=== PATIENT | male | born 1935 | race African-American/Black ===

== ENCOUNTER → 2016-10-17 | Day surgery (SDC) | payer MEDICARE, MEDICAID ==
[2016-10-17] VITALS (10 sets, daily range): BP systolic 114–140; BP diastolic 61–82
[~2016-10-17] VITALS: Ht 167.6 cm; Wt 86.2 kg
[~2016-10-17] MED LIST: ACTOS15 MG ORAL; ALLOPURINOL100 M1 ORAL; Akten 3.5% 1ml Btl RIGHT EYE ONE; BSS 15ml BTL ONE; BSS 500ml btl ONE; Dexamethasone 4mg/ml vial ONE; EPINEPHrine 1mg/1ml Amp ONE; FUROSEMIDE10 MG/1 M2 PO; GLYBURIDE1.25 MG PO; IRON159 MG PO; LR 1000ml ONE; Lidocaine 1% MPF 10mg/ml 5ml ONE; MULTIVITAMINS1 EAC2 ORAL; Maxitrol Opth Oint 3.5gm ONE; NS Irrig 1000ml ONE; Povidone-Iodine 5% opth solution ONE; Pred Forte 1% Opth Susp 1ml ONE; Propofol 10mg/ml 20ml IV ONE; Sodium Hyaluronate 14 mg/ml 0.85ml ONE; Sterile Water Irrig 1000ml IRRIG ONE; Tobramycin Op Soln 0.3% RIGHT EYE ONE; VITAMIN D1000 UNI1 ORAL; fentaNYL 100 mcg/2 mL IV PRN
[2016-10-17] MEDS: Tropicamide 1% Opth Soln RIGHT EYE SCH ×3 (07:13→07:39)
[2016-10-17] MEDS: Cyclopentolate 1% Opth Sol RIGHT EYE SCH ×3 (07:13→07:39)
[2016-10-17] MEDS: Diclofenac Sod 0.1% Op Soln RIGHT EYE SCH ×3 (07:13→07:39)
[2016-10-17] MEDS: Phenylephrine 10% Opth Soln 5ml RIGHT EYE SCH ×3 (07:13→07:39)
[2016-10-17 07:45] LABS: ANION GAP 14 (5-15); CALCIUM 9.3 mg/dL (8.6-10.2); CARBON DIOXIDE 23 mEQ/L (20-30); CHLORIDE 100 mEQ/L (98-107); CREATININE 3.4 mg/dL (0.7-1.2); HEMOLYSIS 10; POTASSIUM 4.3 mEQ/L (3.4-4.9); SODIUM 137 mEQ/L (135-145)
[2016-10-17 07:50] LABS: MEAN CORPUSCULAR HEMOGLOBIN 34.9 PG (27.0-31.0); MEAN CORPUSCULAR HGB CONC 31.1 G/DL (32.0-36.0); MEAN CORPUSCULAR VOLUME 112 FL (80-99); MEAN PLATELET VOLUME 6.8 FL (6.5-10.1); PLATELET COUNT 83 K/UL (150-450); RED BLOOD COUNT 2.97 M/UL (4.70-6.10); RED CELL DISTRIBUTION WIDTH 15.3 % (11.6-14.8); WHITE BLOOD COUNT 3.7 K/UL (4.8-10.8)
--- NOTE | 2016-10-17 08:35 | Anethesia Preoperative Eval ---
Anesthesia Pre-op PMH/ROS General Date of Evaluation: Oct 17, 2016 Time of Evaluation: 08:20 Anesthesiologist: Jl ASA Score: ASA 3 Mallampati Score Class I : Soft palate, uvula, fauces, pillars visible Class II: Soft palate, uvula, fauces visible Class III: Soft palate, base of uvula visible Class IV: Only hard plate visible Mallampati Classification: Class II Surgeon: Talisha Diagnosis: cataract OD Surgical Procedure: cataract ext. w IOL OD Anesthesia History: other - no complic Social History: smoking - quit several years ago Family History: no anesthesia problems Allergies: Coded Allergies: No Known Allergies (Unverified , 10/15/16) Medications: see eMAR Past Medical History Cardiovascular: Reports: HTN Pulmonary: Reports: COPD Gastrointestinal/Genitourinary: Reports: CRI, other - cirrhosis of the liver Neurologic/Psychiatric: Reports: other - ZUNI Endocrine: Reports: DM - type 2 HEENT: Reports: ZUNI (L), cataract (R) Hematology/Immune: Reports: anemia, other - thrombocytopenia Anesthesia Pre-op Phys. Exam Physician Exam Last Vital Signs Date Time Temp Pulse Resp B/P Pulse Ox O2 Delivery O2 Flow Rate FiO2 10/17/16 07:42 97.4 60 18 128/61 99 Room Air Constitutional: NAD Neurologic: CN 2-12 intact Cardiovascular: RRR Respiratory: CTA Gastrointestinal: other - deferred Airway Exam Mallampati Score: Class II MO: limited Teeth: missing - upper incisors Dentures: upper - partial dent out Anesthesia Pre-op A/P Labs Hematology Test 10/17/16 06:55 White Blood Count 3.7 K/UL (4.8-10.8) L Red Blood Count 2.97 M/UL (4.70-6.10) L Hemoglobin 10.4 G/DL (14.2-18.0) L Hematocrit 33.3 % (42.0-52.0) L Mean Corpuscular Volume 112 FL (80-99) H Mean Corpuscular Hemoglobin 34.9 PG (27.0-31.0) H Mean Corpuscular Hemoglobin Concent 31.1 G/DL (32.0-36.0) L Red Cell Distribution Width 15.3 % (11.6-14.8) H Platelet Count 83 K/UL (150-450) L Mean Platelet Volume 6.8 FL (6.5-10.1) Neutrophils (%) (Auto) % (45.0-75.0) Lymphocytes (%) (Auto) % (20.0-45.0) Monocytes (%) (Auto) % (1.0-10.0) Eosinophils (%) (Auto) % (0.0-3.0) Basophils (%) (Auto) % (0.0-2.0) Neutrophils % (Manual) Pending Lymphocytes % (Manual) Pending Platelet Estimate Pending Platelet Morphology Pending Chemistry Test 10/17/16 06:55 Sodium Level 137 mEQ/L (135-145) Potassium Level 4.3 mEQ/L (3.4-4.9) Chloride Level 100 mEQ/L (98-107) Carbon Dioxide Level 23 mEQ/L (20-30) Anion Gap 14 (5-15) Blood Urea Nitrogen 38 mg/dL (7-23) H Creatinine 3.4 mg/dL (0.7-1.2) H Estimat Glomerular Filtration Rate mL/min (>60) Glucose Level 121 mg/dL (74-106) H Calcium Level 9.3 mg/dL (8.6-10.2) JOSSELIN LERMA M.D. Oct 17, 2016 08:35
--- NOTE | 2016-10-17 08:53 | Immediate Post-Op Evaluation ---
Immediate Post-Op Evalulation Immediate Post-Op Evalulation Procedure: cataract extract w IOL OD Date of Evaluation: Oct 17, 2016 Time of Evaluation: 09:30 IV Fluids: 300 ml LR Blood Products: 0 Estimated Blood Loss: 0 Urinary Output: nm Blood Pressure Systolic: 147 Blood Pressure Diastolic: 68 Pulse Rate: 65 Respiratory Rate: 16 O2 Sat by Pulse Oximetry: 100 Temperature (Fahrenheit): 97.8 Pain Score (1-10): 0 Nausea: No Vomiting: No Complications none Patient Status: reacts, patent, none Hydration Status: adequate Drug: none JOSSELIN LERMA M.D. Oct 17, 2016 08:53
--- NOTE | 2016-10-17 08:54 | 48 Hour Post Anesthesia Eval ---
Post Anesthesia Evaluation Procedure: cataract extract w IOL OD Date of Evaluation: Oct 17, 2016 Time of Evaluation: 09:55 Blood Pressure Systolic: 127 0: 65 Pulse Rate: 16 Respiratory Rate: 16 Temperature (Fahrenheit): 97.8 O2 Sat by Pulse Oximetry: 100 Airway: patent Nausea: No Vomiting: No Pain Intensity: 0 Hydration Status: adequate Cardiopulmonary Status: stable Mental Status/LOC: patient returned to baseline - drowsy, responds to verbal Follow-up care needed: patient intructions given JOSSELIN LERMA M.D. Oct 17, 2016 08:54
[2016-10-17 10:46] LABS: ANISOCYTOSIS 1+; BAND NEUTROPHILS % (MANUAL) 0 % (0-8); BASOPHILS % (MANUAL) 1 % (0-2); EOSINOPHILS % (MANUAL) 3 % (0-3); HYPOCHROMASIA 1+; LYMPHOCYTES % (MANUAL) 20 % (20-45); MACROCYTES 2+; NEUTROPHILS % (MANUAL) 57 % (45-75); PLATELET ESTIMATE DECREASED; PLATELET MORPHOLOGY NORMAL; TOTAL CELLS COUNTED 100
--- NOTE | 2016-10-17 11:38 | Pre-op HX & Phy Repo 2 SIG ---
DATE OF ADMISSION: 10/17/2016 REASON FOR EVALUATION: I was asked by Dr. Royal Woodall to see this 81-year-old male, who is going for elective surgery on the right eye. The patient was examined. Chart was reviewed. The patient has cataract, right eye. Please see full history and physical by director business development, Dr. Royal Woodall. The patient's history and physical, part of information obtained from daughter at bedside. PAST MEDICAL HISTORY: Remarkable for type 2 diabetes mellitus, liver cirrhosis, anemia. In the past, history of renal insufficiency, not on dialysis, history of hypertension, and gout. No history of chest pain, palpitation, or heart attack. Denies history of thyroid problem. No history of respiratory problem. No stroke or seizures. PAST SURGICAL HISTORY: Appendectomy. FAMILY HISTORY: Father had diabetes mellitus. ALLERGIES: Not known. PRESENT MEDICATIONS: Actos, glyburide, allopurinol, iron pills, vitamin D, furosemide, multivitamin. Dosage not known of any medication. SOCIAL HISTORY: Smoked in the past and alcohol user. No street drugs. PHYSICAL EXAMINATION: GENERAL: Alert, hearing impaired male in his 80s, in no acute distress. VITAL SIGNS: Blood pressure 126/61, temperature 97.4, pulse 60, respirations 18, and O2 saturation 99% on room air. SKIN: Dry, clear. No rashes. No diaphoresis. LYMPHATICS: Lymph nodes not enlarged. HEENT: Head normocephalic. Normal hair growth. Ears clear, no discharge. Hearing impairment. Mouth clear and moist. Nose clear, no discharge. Mouth is moist. Upper and lower dentures. Eyes, full description per Dr. Royal Woodall. NECK: Supple. No jugular vein distention. Carotids artery +2. Trachea midline. CHEST: No deformity or asymmetry. LUNGS: Clear. No rales or rhonchi. HEART: Sinus rhythm. No ectopy. No murmur. No S3 or S4. ABDOMEN: Soft, benign. Liver and spleen not enlarged. No rebound. EXTREMITIES: He has +1 ankle edema. Calf nontender. No varicose vein. No deformity. NERVOUS SYSTEM: No tremor. No nystagmus. No asymmetry. LABORATORY AND DIAGNOSTIC DATA: ECG, sinus rhythm, 61 per minute, third-degree AV block, nonspecific ST/T-wave abnormality. The patient's last p.o. intake at 7 p.m. yesterday. Fast blood sugar this morning 114 mg/dL. IMPRESSION: 1. Cataract, right eye. 2. Diabetes mellitus type 2. 3. Liver cirrhosis, stage . 4. Gout. 5. History of anemia secondary to gastrointestinal bleeding. 6. Third-degree atrioventricular block on electrocardiogram, nonspecific ST/T-wave abnormality. PLAN: Cataract extraction, right eye with intraocular lens implant by Dr. Royal Woodall. CONCLUSION: The patient is an elderly 81-year-old male with history of diabetes and cirrhosis. The patient's blood sugar controlled. Cirrhosis controlled. Vital signs stable. The patient did not eat or drink from last night. The patient's condition optimized for surgery. Thank you very much, Dr. Woodall, for privilege to participate in presurgical care of this interesting patient. Joy Schreiber M.D. DR: Donovan JOB#: [id number] CC:
--- NOTE | 2016-10-18 10:46 | Brief Operative Note ---
Immediate Post Operative Note Operative Note Chief Complaint: blurry vision, Pre-op Diagnosis: cataract, OD Procedure: phaco with IOL, OS Post-op Diagnosis: Pseudophakia, OS Post-op Diagnosis: same as pre-op Findings: consistent w/pre-op dx studies Surgeon: Talisha Anesthesiologist: Jl Anesthesia: MAC Specimen: none Complications: none Condition: stable Estimated Blood Loss: none Drains: none Implant(s) used?: Yes JACQUI BEAN Oct 18, 2016 10:46
--- NOTE | 2016-10-18 10:48 | Operative Note - PDOC ---
Operative Note Operative Note Date of Operation/Procedure: Oct 17, 2016 Chief Complaint: blurry vision, Pre-op Diagnosis: cataract, OD Procedure: phaco with IOL, OS Post-op Diagnosis: Pseudophakia, OS Post-op Diagnosis: same as pre-op Operative Findings: consistent w/pre-op dx studies Surgeon: Talisha Anesthesiologist: Jl Anesthesia: MAC Specimen: none Complications: none Condition: stable Estimated Blood Loss: none Drains: none Implant(s) used?: Yes Indications for Procedure cataract Description of Procedure This patient has been complaining visually significant cataract in the affected eye with the best corrected visual acuity under moderate glare conditions worse. The patient complains of difficulties with glare in performing activities of daily living and wants to manage personal affairs with comfort and accuracy and see well enough to move with safety at home and outdoors. ~~~ The risks, benefits and alternatives of the procedure were discussed with the patient in the office prior to scheduling surgery. All questions from the patient were answered after the surgical procedure was explained in detail. The risks of the procedure as explained to the patient include, but are not limited to, pain, infection, bleeding, loss of vision, retinal detachment, need for further surgery, loss of lens nucleus, double vision, etc. Alternative procedures were discussed which include, to do nothing or seek a second opinion. Informed consent for this procedure was obtained from the patient. The patient was referred to a primary care physician for a cardiopulmonary clearance prior to surgery, after proper evaluation was done patient was properly scheduled for outpatient surgery. The patient was brought to the operating room where the anesthesiologist established I.V. lines and cardiac monitoring leads. Mild intravenous sedation was administered.~~ The patient was then prepared with a 5% solution of povidone -iodine to the conjunctival fornix and lashes, and a 10% solution of povidone- iodine to the lids and periorbital skin. The patient was then draped in the usual sterile fashion. A lid speculum was then placed in the operative eye. A keratome blade was then used to create a biplanar incision into the anterior chamber. Viscoelastics was then instilled into the anterior chamber. A capsulorrhexis was then fashioned with an utrata forceps. BSS and a cannula were then used to hydrodissect and hydro delineate the lens. Paracentesis incision was made at 3 o'clock with sharp blade. The phacoemulsification unit, after being properly adjusted~ and tested, was then used to emulsify the nucleus. Residual cortical material was aspirated with the irrigation and aspiration unit. Healon was then instilled into the anterior chamber. The corneal wound was then enlarged to the size of the optic with the yfn keratome blade. The intraocular lens was then inspected for right~ power and size~ and thought to be satisfactory. Then the lens was gently placed in the capsular bag. Positioning within the capsular bag was confirmed by direct visualization. Optic centration was accomplished with a Sinskey hook. Viscoelastics~ was removed from the anterior chamber using the irrigation and aspiration unit. The corneal wound was then tested for leaks and none were found. The lid speculum were then removed. Sponge and needle counts were correct. An eye patch and shield were placed over the operative eye. The patient was taken to the recovery room in stable condition. There were no complications. The patient tolerated the procedure well. The patient was then transferred to the ambulatory surgery unit in stable and satisfactory condition , was given detailed written instructions and asked to follow up~ in the office the next day. ~ ~ Dictated & Transcribed: [facility] Lynda ASIF JAMES Oct 18, 2016 10:48
--- NOTE | 2016-10-19 14:32 | Cardiology Report ---
APPROVED REPORT EKG Measurement Heart [id number] Sinus rhythm with 1st degree AV block Nonspecific ST and T wave abnormality Abnormal ECG
== END | disposition home or self-care (01) ==
LOC: SUR 05:38
DX: H26.9 Unspecified cataract (principal); E11.9 Type 2 diabetes mellitus without complications; K74.60 Unspecified cirrhosis of liver; D64.9 Anemia, unspecified; D69.6 Thrombocytopenia, unspecified; J44.9 Chronic obstructive pulmonary disease, unspecified; Z87.891 Personal history of nicotine dependence; I44.2 Atrioventricular block, complete; H91.90 Unspecified hearing loss, unspecified ear; M10.9 Gout, unspecified; Z86.79 Personal history of other diseases of the circulatory system; Z90.49 Acquired absence of other specified parts of digestive tract
CPT/HCPCS: 36415; 66984; 80048; 82962; 85007; 85025; 93005; J0171; J1100; J2704; J3370; J7120; V2632; 94003; 94150